=== PATIENT | female | born 1995 | race Caucasian/White ===

== ENCOUNTER 2017-03-15 13:08 | Emergency (ER) | payer OTHER ==
[~2017-03-15] VITALS: Ht 172.7 cm; Wt 91.0 kg
[2017-03-15 13:20] VITALS: TEMP 36.8; Ht 172.7 cm; Wt 91.0 kg
--- NOTE | 2017-03-15 16:19 | EMERGENCY ROOM VISIT NOTE ---
History Report prepared by Bárbara: Gi Carbone Under the Supervision of: Dr. Murali Gama D.O. First contact with patient: 15:48 Chief Complaint: FLANK PAIN Stated Complaint: R SIDE PAIN History of Present Illness The patient is a 22 year old female who presents to the Emergency Room with complaints of intermittent right sided flank pain beginning 2 days ago. The patient states that she has been having pain on her right side under her ribs. She reports that she has noticed right sided groin pain that is dull and reminds her of menstrual cramps. She notes that she is having vaginal sensitivity and dryness that is painful with movement. The patient complains of chills, nausea, and abdominal cramping in the RUQ. She denies any rash, urinary symptoms, abnormal vaginal discharge, chest pain, and shortness of breath. She notes that her LNMP was last week and it is regular. She reports that she is not sexually active and has never had sex. Source of History: patient Onset: 2 days ago Position: other (right flank) Quality: cramping Timing: intermittent Associated Symptoms: + chills, + nausea, + abdominal pain, No chest pain, No SOB, No urinary symptoms, No rash Note: The patient complains of vaginal pain and dryness. She denies any abnormal vaginal discharge. Review of Systems See HPI for pertinent positives & negatives. A total of 10 systems reviewed and were otherwise negative. Past Medical & Surgical Medical Problems: (1) No Known Active Medical Problems Family History Cancer Heart disease Hypertension Social History Smoking Status: Never Smoker Smokeless Tobacco Use: No Alcohol Use: occasionally Marital Status: single Housing Status: lives with roommate Occupation Status: [employer] Current/Historical Medications Scheduled Control Pills ( Control Pills), 1 TAB PO DAILY Ciprofloxacin Hcl (Cipro), 500 MG PO BID Allergies Uncoded Allergies: PENICILLIN (Allergy, Unknown, UNKNOWN- CHILDHOOD, 03/15/17) Physical Exam Vital Signs Date Time Temp Pulse Resp B/P (MAP) Pulse Ox O2 Delivery O2 Flow Rate FiO2 03/15/17 19:02 76 18 123/77 99 03/15/17 17:39 88 18 116/67 99 Room Air 03/15/17 13:20 36.8 102 18 130/76 98 Room Air Physical Exam GENERAL: Patient is awake, alert, and in no acute distress. Patient is resting comfortably and showing no signs of anxiety EYES: The conjunctivae are clear. The pupils are round and reactive. EARS, NOSE, MOUTH AND THROAT: The nose is without any evidence of any deformity. Mucous membranes are moist tongue is midline NECK: The neck is nontender and supple. RESPIRATORY: Normal respiratory effort is noted there is no evidence of wheezing rhonchi or rales CARDIOVASCULAR: Regular rate and rhythm noted there no murmurs rubs or gallops normal S1 normal S2 GASTROINTESTINAL: The abdomen is soft. Bowel sounds are present in all quadrants. Abdomen is nontender BACK: No midline tenderness or or step-off noted range of motion in flexion extension as well as rotation no signs of muscle spasm noted MUSCULOSKELETAL/EXTREMITIES: There is no evidence of gross deformity full range of motion is noted in the hips and shoulders SKIN: There is no obvious evidence of any rash. There are no petechiae, pallor or cyanosis noted. NEUROLOGIC: Patient is awake alert and oriented x3 strength is symmetric patellar reflexes are 2+ bilaterally Medical Decision & Procedures ER Provider Diagnostic Interpretation: Radiology results as stated below per my review and radiologist interpretation: BILIARY ULTRASOUND FINDINGS: Pancreas appears normal as visualized. No hepatic masses are visualized. There is no right-sided hydronephrosis. The gallbladder appears normal. There is no ductal dilatation. The common bile duct measures 5 mm. IMPRESSION: Normal biliary ultrasound. Electronically signed by: Abner Zheng M.D. 03/15/2017 6:04 PM Dictated Date/Time: 03/15/2017 6:04 PM ABDOMEN 2VIEW W/PA CHEST RTN FINDINGS: The erect chest reveals no evidence of free air. There is no evidence of focal pulmonary consolidation.] Erect and supine views of the abdomen reveal no abnormally dilated loops of large or small bowel. There are no transition zone to indicate bowel obstruction. There are multiple pelvic basin calcifications, likely representing phleboliths. There is L5 spina bifida occulta. IMPRESSION: No evidence of bowel obstruction. No evidence of free air. Electronically signed by: Abner Zheng M.D. 03/15/2017 5:51 PM Dictated Date/Time: 03/15/2017 5:50 PM Laboratory Results 03/15/17 17:24 Red Blood Count 4.91, Mean Corpuscular Volume 85.9, Mean Corpuscular Hemoglobin 29.1, Mean Corpuscular Hemoglobin Concent 33.9, Mean Platelet Volume 9.7, Neutrophils (%) (Auto) 45.3, Lymphocytes (%) (Auto) 47.9, Monocytes (%) (Auto) 4.7, Eosinophils (%) (Auto) 1.6, Basophils (%) (Auto) 0.4, Neutrophils # (Auto) 3.65, Lymphocytes # (Auto) 3.86, Monocytes # (Auto) 0.38, Eosinophils # (Auto) 0.13, Basophils # (Auto) 0.03 03/15/17 17:24 Test 03/15/17 17:00 03/15/17 17:24 Urine Color YELLOW Urine Appearance CLEAR (CLEAR) Urine pH 7.5 (4.5-7.5) Urine Specific [place] 1.017 (1.000-1.030) Urine Protein NEG (NEG) Urine Glucose (UA) NEG (NEG) Urine Ketones 1+ (NEG) Urine Occult Blood 2+ (NEG) Urine Nitrite NEG (NEG) Urine Bilirubin NEG (NEG) Urine Urobilinogen NEG (NEG) Urine Leukocyte Esterase TRACE (NEG) Urine WBC (Auto) 1-5 /hpf (0-5) Urine RBC (Auto) >30 /hpf (0-4) Urine Hyaline Casts (Auto) 1-5 /lpf (0-5) Urine Epithelial Cells (Auto) >30 /lpf (0-5) Urine Bacteria (Auto) 1+ (NEG) White Blood Count 8.06 K/uL (4.8-10.8) Red Blood Count 4.91 M/uL (4.2-5.4) Hemoglobin 14.3 g/dL (12.0-16.0) Hematocrit 42.2 % (37-47) Mean Corpuscular Volume 85.9 fL (80-100) Mean Corpuscular Hemoglobin 29.1 pg (25-34) Mean Corpuscular Hemoglobin Concent 33.9 g/dl (32-36) Platelet Count 260 K/uL (130-400) Mean Platelet Volume 9.7 fL (7.4-10.4) Neutrophils (%) (Auto) 45.3 % Lymphocytes (%) (Auto) 47.9 % Monocytes (%) (Auto) 4.7 % Eosinophils (%) (Auto) 1.6 % Basophils (%) (Auto) 0.4 % Neutrophils # (Auto) 3.65 K/uL (1.4-6.5) Lymphocytes # (Auto) 3.86 K/uL (1.2-3.4) Monocytes # (Auto) 0.38 K/uL (0.11-0.59) Eosinophils # (Auto) 0.13 K/uL (0-0.5) Basophils # (Auto) 0.03 K/uL (0-0.2) RDW Standard Deviation 36.9 fL (36.4-46.3) RDW Coefficient of Variation 11.8 % (11.5-14.5) Immature Granulocyte % (Auto) 0.1 % Immature Granulocyte # (Auto) 0.01 K/uL (0.00-0.02) Anion Gap 10.0 mmol/L (3-11) Est Creatinine Clear Calc Drug Dose 119.7 ml/min Estimated GFR () 109.6 Estimated GFR (Non- 94.6 BUN/Creatinine Ratio 8.4 (10-20) Calcium Level 9.9 mg/dl (8.5-10.1) Total Bilirubin 1.2 mg/dl (0.2-1) Direct Bilirubin 0.2 mg/dl (0-0.2) Aspartate Amino Transf (AST/SGOT) 27 U/L (15-37) Alanine Aminotransferase (ALT/SGPT) 30 U/L (12-78) Alkaline Phosphatase 59 U/L (45-117) Total Protein 8.1 gm/dl (6.4-8.2) Albumin 4.6 gm/dl (3.4-5.0) Lipase 116 U/L (73-393) Human Chorionic Gonadotropin, Qual NEG (NEG) Laboratory results per my review. Medications Administered Medications (Trade) Dose Ordered Sig/Lissett Route Start Time Stop Time Status Last Admin Dose Admin Ciprofloxacin (Cipro Tab) 500 mg NOW STAT PO 03/15/17 18:10 03/15/17 18:11 DC 03/15/17 18:23 500 MG Fluconazole (Diflucan Tab) 150 mg NOW ONCE PO 03/15/17 18:30 03/15/17 18:31 DC 03/15/17 18:23 150 MG ED Course 1548: The patient was evaluated in room A6. A complete history and physical examination were performed. 0: Cipro Tab 500mg PO. 1: I reevaluated and updated the patient. 1829: Diflucan Tab 150mg PO. 1838: Upon reevaluation, the patient is doing well. I discussed the results and treatment plan with the patient. She verbalized agreement of the treatment plan. The patient was discharged home. Medical Decision Differential diagnosis: Etiologies such as appendicitis, diverticulitis, PUD, biliary pathology, UTI, pancreatitis, obstruction, mesenteric ischemia, aortic pathology, infections, inflammatory bowel disease, renal colic, as well as others were entertained. Medication Reconciliation: I attest that I have personally reviewed the patient' s current medications list. Blood pressure screening: Patient was found to have normal blood pressure on screening and does not require follow-up. The patient is a 22-year-old female who presented to the emergency apartment for an evaluation of colicky right upper quadrant and right flank pain. The patient did not appear to be in significant pain and states her pain was significantly improved prior to arrival. Given the patient's history and physical exam as well as the presence of hematuria I feel her condition would either be consistent with hemorrhagic cystitis or possibly a recently passed kidney stone. She did not have any signs of hydronephrosis on ultrasound or signs of gallbladder pathology on ultrasound. I discussed patient's laboratory and radiographic studies with her. She states that she has some irritation around her urethra and this could be consistent with a yeast infection or possibly still with a kidney stone. For this reason she was given a dose of Diflucan as well as a dose of Cipro. She was encouraged to continue all medications as prescribed and drink plenty clear liquids. She was also encouraged to follow-up with her primary care physician as well as possible but return to the emergency department immediately if symptoms change worsen or the need arises. Impression Primary Impression: Right flank pain Additional Impressions: Hematuria Cystitis Scribe Attestation The scribe's documentation has been prepared under my direction and personally reviewed by me in its entirety. I confirm that the note above accurately reflects all work, treatment, procedures, and medical decision making performed by me. Departure Information Dispostion Home / Self-Care Prescriptions Ciprofloxacin Hcl (CIPRO) 500 Mg Tab 500 MG PO BID, #14 TAB Prov: Murali Gama, DO 03/15/17 Referrals No Doctor, Assigned (PCP) Forms HOME CARE DOCUMENTATION FORM, IMPORTANT VISIT INFORMATION Patient Instructions ED UTI Cystitis Female, Hematuria, My [facility] Additional Instructions Call [facility] to schedule a follow-up appointment. Continue all medications as prescribed. Continue using Motrin and Tylenol as directed for pain. Return to the emergency department immediately if symptoms worsen or if need arises. Problem Qualifiers Additional Impressions: Hematuria Hematuria type: unspecified type Qualified Codes: R31.9 - Hematuria, unspecified
[2017-03-15] MEDS ORDERED: BCPILLS PO (16:53)
[2017-03-15 17:38] LABS: BASO % 0.4 %; BASO ABS # 0.03 K/uL (0-0.2); COMPLETE YES; EOS % 1.6 %; HEMATOCRIT 42.2 % (37-47); IG% 0.1 %; LYMPH % 47.9 %; LYMPH ABS # 3.86 K/uL (1.2-3.4); MEAN CELL VOLUME 85.9 fL (80-100); MEAN CORPUSCULAR HEMOGLOBIN 29.1 pg (25-34); MEAN CORPUSCULAR HGB CONC 33.9 g/dl (32-36); MEAN PLATELET VOLUME 9.7 fL (7.4-10.4); MONO % 4.7 %; NEUT % 45.3 %; PLATELET COUNT 260 K/uL (130-400); RED BLOOD COUNT 4.91 M/uL (4.2-5.4); WHITE BLOOD COUNT 8.06 K/uL (4.8-10.8)
[2017-03-15 17:39] LABS: URINE APPEARANCE CLEAR (CLEAR); URINE BILIRUBIN NEG (NEG); URINE COLOR YELLOW; URINE EPITHELIAL CELL AUTO >30 /lpf (0-5); URINE NITRITE NEG (NEG); URINE PH 7.5 (4.5-7.5); URINE SPECIFIC GRAVITY 1.017 (1.000-1.030); UROBILINOGEN NEG (NEG)
[2017-03-15 17:46] LABS: MANUAL MICROSCOPIC REQUIRED? NO; REVIEW REQ? NO
--- NOTE | 2017-03-15 17:52 | DIAGNOSTIC IMAGING REPORT ---
ABDOMEN 2VIEW W/PA CHEST RTN CLINICAL HISTORY: Right-sided abdominal pain COMPARISON STUDY: No previous studies for comparison. FINDINGS: The erect chest reveals no evidence of free air. There is no evidence of focal pulmonary consolidation.] Erect and supine views of the abdomen reveal no abnormally dilated loops of large or small bowel. There are no transition zone to indicate bowel obstruction. There are multiple pelvic basin calcifications, likely representing phleboliths. There is L5 spina bifida occulta. IMPRESSION: No evidence of bowel obstruction. No evidence of free air. Electronically signed by: Abner Zheng M.D. 03/15/2017 5:51 PM Dictated Date/Time: 03/15/2017 5:50 PM
[2017-03-15 18:00] LABS: BUN/CREATININE RATIO 8.4 (10-20); CALCIUM 9.9 mg/dl (8.5-10.1); CREATININE 0.87 mg/dl (0.60-1.20); POTASSIUM 3.3 mmol/L (3.5-5.1); PREG INTERNAL NEGATIVE QC NEG CLEAR BACKGROUND; PREG INTERNAL POSITIVE QC POS CONTROL LINE
--- NOTE | 2017-03-15 18:06 | DIAGNOSTIC IMAGING REPORT ---
BILIARY ULTRASOUND CLINICAL HISTORY: Abdominal pain COMPARISON STUDY: No previous studies for comparison. FINDINGS: Pancreas appears normal as visualized. No hepatic masses are visualized. There is no right-sided hydronephrosis. The gallbladder appears normal. There is no ductal dilatation. The common bile duct measures 5 mm. IMPRESSION: Normal biliary ultrasound. Electronically signed by: Abner Zheng M.D. 03/15/2017 6:04 PM Dictated Date/Time: 03/15/2017 6:04 PM
[2017-03-15] MEDS ORDERED: CIPROFLOXACIN 500 MG TAB PO STA (18:10)
[2017-03-15] MEDS ORDERED: FLUCONAZOLE 50 MG TAB PO ONE (18:30)
[2017-03-15] MEDS ORDERED: CIPR-255 PO (18:37)
[2017-03-15 19:02] VITALS: BP 123/77; PULSE 76; O2SAT 99
== END 2017-03-15 19:00 | disposition home or self-care (01) ==
LOC: C.EDB 13:10 → C.EDA 19:00
DX: R10.30 Lower abdominal pain, unspecified (principal); N30.91 Cystitis, unspecified with hematuria